=== PATIENT | female | born 1940 | race African-American/Black ===

== ENCOUNTER → 2016-09-09 | Outpatient (CLI) | payer MEDICARE, OTHER ==
--- NOTE | ~2016-09-09 | MY29 ---
[facility] A Service of [facility] RADIOLOGY TEXT RESULTS PATIENT: DELANO WILDER LOCATION: [facility] : 40 UNIT #: [id number] AGE: [address]: Julian Gilbert MD SEX: F ORDER DR: [id number] [place] [id number], [place] [address] [id number] O MR#: [id number] Acc #: [id number] NAME: DELANO WILDER : 1940 SEX: F STUDY DATE/TIME: 09/09/2016 9:28 UNIT: [facility] ROOM: STUDY DESCRIPTION: [facility] SCREENING W/ CAD BILAT Attending Physician: Julian Gilbert M.D. Referring Physician: Julian Gilbert M.D. Ordering Physician: Julian Gilbert M.D. Primary Care Physician: Gabino Morillo M.D. MEDICAL IMAGING REPORT This report is preliminary unless electronic signature is present EXAM Bilateral digital screening mammogram CAD DATE 09/09/2016 HISTORY 75-year-old female with no personal or family history of breast cancer or current complaints. HISTORY History of right breast cyst drainage. COMPARISON Bilateral screening mammogram 09/09/2015, 09/03/2014, 08/31/2013. FINDINGS CC and MLO views were obtained of each breast utilizing digital technique and reviewed with an FDA-approved CAD device. Scattered fibroglandular densities are present bilaterally. Slightly fibronodular pattern within each breast is again noted and the parenchymal pattern appears stable. No new or developing nodules, architectural distortion, or suspicious clustered microcalcification is seen. IMPRESSION Benign findings. Routine bilateral screening mammogram is recommended in 1 year. Patient's over the age of 40 are entered into a reminder system with target due date for the next mammogram. BIRADS: 2 Benign findings [facility] A [facility] RADIOLOGY TEXT RESULTS PATIENT: DELANO WILDER LOCATION: [facility] : 40 UNIT #: [id number] AGE: [address]: Julian Gilbert MD SEX: F ORDER DR: Dictated by... Love Romo M.D. THIS IS AN ELECTRONICALLY VERIFIED REPORT Love Romo M.D. at 09/11/2016 9:33 PM CHARLEEN/teresa TD: 09/09/2016 12:05 JOB #: [id number] MEDICAL IMAGING REPORT Page 1 of 1 COPY
== END | disposition home or self-care (01) ==
LOC: CWCC 08:54
DX: Z12.31 Encounter for screening mammogram for malignant neoplasm of breast (principal); N60.19 Diffuse cystic mastopathy of unspecified breast
CPT/HCPCS: G0202